=== PATIENT | female | born 1985 ===

== ENCOUNTER 2020-02-09 11:43 | Outpatient (REF) | payer BC, SELFPAY ==
[2020-02-14 21:19] LABS: SARS-CoV-2 RNA Undetected (Undetected); SARS-CoV-2 Specimen Source Nasal
== END 2020-02-09 12:03 ==
LOC: NCHCN 11:43
PROVIDERS: PCP Physician Assistant Medical; Visit Provider Internal Medicine
DX: Z20.828 Contact with and (suspected) exposure to other viral communicable diseases (principal)
CPT/HCPCS: U0003

== ENCOUNTER 2020-02-16 10:27 | Outpatient (REF) | payer BC, SELFPAY | END 2020-02-16 10:47 | LOC: NCHCN 10:27 | PROVIDERS: PCP Physician Assistant Medical; Visit Provider Nurse Practitioner Family | DX: R69 Illness, unspecified (principal) | CPT/HCPCS: 80061; 82947 ==

== ENCOUNTER 2020-03-01 20:44 | Outpatient (REF) | payer BC, SELFPAY ==
[2020-03-01 20:43] LABS: Calculated LDL 139 mg/dL (<100); Cholesterol 196 mg/dL (<200); Glucose 86 mg/dL (74-106); HDL Cholesterol 49 mg/dL (40-60); Triglyceride 41 mg/dL (<150)
== END 2020-03-01 21:04 ==
LOC: NCHCN 20:44
PROVIDERS: PCP Physician Assistant Medical; Visit Provider Nurse Practitioner Family
DX: Z00.00 Encounter for general adult medical examination without abnormal findings (principal); Z13.220 Encounter for screening for lipoid disorders; Z13.1 Encounter for screening for diabetes mellitus
CPT/HCPCS: 80061; 82947

== ENCOUNTER 2020-03-20 15:16 | Outpatient (REF) | payer BC, SELFPAY ==
[2020-03-23 21:35] LABS: COVID-19 RT-PCR Result NEGATIVE (Negative)
== END 2020-03-20 15:36 ==
LOC: NCHCN 15:16
PROVIDERS: PCP Physician Assistant Medical; Visit Provider Internal Medicine
DX: Z20.828 Contact with and (suspected) exposure to other viral communicable diseases (principal)
CPT/HCPCS: U0003

== ENCOUNTER 2021-07-23 11:07 | Outpatient (REF) | payer BC, SELFPAY | END 2021-07-23 11:08 | disposition home or self-care (01) | LOC: NCHCN 11:07 | PROVIDERS: PCP Physician Assistant Medical; Visit Provider Physician Assistant | DX: N39.0 Urinary tract infection, site not specified (principal) | CPT/HCPCS: 87077; 87086; 87186 ==

== ENCOUNTER 2022-09-04 17:32 | Outpatient (REF) | payer BC, SELFPAY ==
[2022-09-04 20:06] LABS: Calculated LDL 123 mg/dL (<100); Cholesterol 192 mg/dL (<200); Glucose 91 mg/dL (74-106); HDL Cholesterol 60 mg/dL (40-60); TSH 1.27 uIU/mL (0.36-3.74); Triglyceride 48 mg/dL (<150)
== END 2022-09-04 17:33 | disposition home or self-care (01) ==
LOC: NCHCN 17:32
PROVIDERS: PCP Physician Assistant Medical; Visit Provider Internal Medicine
DX: Z00.00 Encounter for general adult medical examination without abnormal findings (principal); F41.8 Other specified anxiety disorders; I73.00 Raynaud's syndrome without gangrene; Z13.1 Encounter for screening for diabetes mellitus; Z13.220 Encounter for screening for lipoid disorders
CPT/HCPCS: 80061; 82947; 84443